=== PATIENT | female | born 1940 | race Caucasian/White ===

== ENCOUNTER 2017-10-08 04:52 | Inpatient (IN) ==
[2017-10-05 14:59] LABS: ALT/SGPT 21 U/l (0-40); Albumin 4.3 gm/dL (3.2-5.2); Albumin/Globulin Ratio 1.5 (1.0-2.3); Alkaline Phosphatase 47 U/L (39-117); Blood Urea Nitrogen 28 mg/dl (8-23)
[2017-10-05 15:00] LABS: Basophils # (Auto) 0 K/mcL (0.0-0.3); Basophils % (Auto) 0.4 % (0.0-2.0); Eosinophils # (Auto) 0.2 K/mcL (0.0-0.7); Eosinophils % (Auto) 2.1 % (0.0-7.0); Granulocytes % (Auto) 70.1 % (38.0-78.0); Lymphocytes # (Auto) 1.7 K/mcL (1.5-4.8); Lymphocytes % (Auto) 21.3 % (15.5-49.0); Mean Cell Volume 91.8 fL (80.0-100.0); Mean Corpuscular Hemoglobin 30.3 pg (26.0-34.0); Monocytes # (Auto) 0.5 K/mcL (0.1-0.9); Monocytes % (Auto) 6.1 % (1.0-12.0); Platelet Count 354 K/mcL (140-440); RBC 4.94 M/mcL (4.00-5.20); Red Cell Distribution Width 14.1 % (11.5-14.5)
[2017-10-05 15:44] LABS: Appearance,Urine CLEAR; Bilirubin,Urine NEG (NEG); Color,Urine YELLOW; Glucose,Urine (UA) NEGATIVE (NEG); Leukocyte Esterase,Urine NEG /uL (NEG); Protein,Urine NEG (NEG); Specific Gravity,Urine 1.012 (1.000-1.035); Urine Blood NEG mg/dL (<0.03); Urobilinogen,Urine NEG (NEG)
[~2017-10-08 04:52] MED LIST: IPRATROPIUM/ALBUTEROL 3 ML AMPUL.NEB NEB PRN; SCOPOLAMINE 1 PATCH PATCH TOPICAL PRN
[2017-10-08] MEDS ORDERED: ceFAZolin 1 GM VIAL IV SCH (06:00)
[2017-10-08] MEDS ORDERED: SUCCINYLCHOLINE 20 MG/ML ML IV ONE (07:30)
[2017-10-08] MEDS ORDERED: GLYCOPYRROLATE 0.2 MG/ML VIAL IV ONE (07:30)
[2017-10-08] MEDS ORDERED: KETAMINE 100 MG/ML ML IV ONE (07:30)
[2017-10-08] MEDS ORDERED: LIDOCAINE HCL/PF 100 MG/5 ML SYRINGE IV ONE (07:30)
[2017-10-08] MEDS ORDERED: ONDANSETRON 4 MG/2 ML VIAL IV ONE (07:30)
[2017-10-08] MEDS ORDERED: ePHEDrine 50 MG/ML AMPUL IV ONE (07:30)
[2017-10-08] MEDS ORDERED: LABETALOL 5 MG/ML ML IV ONE (07:30)
[2017-10-08] MEDS ORDERED: TRANEXAMIC ACID 1,000 MG/10 ML VIAL IV ONE (07:30)
[2017-10-08] MEDS ORDERED: MIDAZOLAM 2 MG/2 ML VIAL IV ONE (07:30)
[2017-10-08] MEDS ORDERED: PROPOFOL 200 MG/20 ML VIAL IV ONE (07:30)
[2017-10-08] MEDS ORDERED: fentaNYL 250 MCG/5 ML VIAL IV ONE (07:30)
[2017-10-08] MEDS ORDERED: DEXAMETHASONE 10 MG/ML VIAL IV ONE (07:30)
[2017-10-08] MEDS ORDERED: HEPARIN 20,000 UNIT/ML VIAL IR ONE (09:08)
[2017-10-08] MEDS ORDERED: THROMBIN (BOVINE) 5,000 UNIT VIAL TOPICAL ONE (09:08)
[2017-10-08] MEDS ORDERED: CALCIUM GLUCONATE 4.65 MEQ in DEXTROSE 5% IN WATER 50 ML IV ONE (09:08)
[2017-10-08] MEDS ORDERED: BUPIVACAINE 0.25% 50 ML VIAL IJ ONE (09:08)
[2017-10-08] MEDS ORDERED: GELATIN SPONGE,ABSORBABLE 1 EACH SPONGE TOPICAL ONE (09:28)
[2017-10-08] MEDS ORDERED: GELATIN SPONGE,ABSORBABLE 1 GM POWDER TOPICAL ONE (09:28)
[2017-10-08] MEDS ORDERED: GUM MASTIC/STORAX/MSAL/ALCOHOL 1 DOSE DROPERETTE TOPICAL ONE (11:49)
[2017-10-08] MEDS ORDERED: PROMETHAZINE 25 MG/ML VIAL IV PRN (11:56)
[2017-10-08] MEDS ORDERED: METHOCARBAMOL 1,000 MG/10 ML VIAL IV PRN (11:56)
[2017-10-08] MEDS ORDERED: KETOROLAC 15 MG/ML VIAL IV PRN (11:56)
[2017-10-08] MEDS ORDERED: MEPERIDINE 25 MG/ML SYRINGE IV PRN (11:56)
[2017-10-08] MEDS ORDERED: ACETAMINOPHEN 1,000 MG/100 ML BOTTLE IV ONE (11:56)
[2017-10-08] MEDS ORDERED: IPRATROPIUM/ALBUTEROL 3 ML AMPUL.NEB NEB PRN (11:56)
[2017-10-08] MEDS ORDERED: LACTATED RINGERS 1,000 ML IV SCH (12:00)
[2017-10-08] MEDS ORDERED: BENZOCAINE/MENTHOL 1 LOZENGE PO PRN (12:25)
[2017-10-08] MEDS ORDERED: ONDANSETRON ODT 4 MG TABLET SL PRN (12:25)
--- NOTE | 2017-10-08 12:25 | Brief Operative Note ---
Date of procedure: 10/08/17 Pre-op diagnosis: stenosis/ instability Post-op diagnosis: same Procedure: decomp and fusion L4-S1 Grafts/Implants: Yes (nuvasive) Anesthesia: GETA Complications: none Surgeon: Remington Girard Mental Health Tech: Crystal Collado Estimated blood loss (cc): 250 Specimens Removed/Pathology: none sent Condition: stable Disposition: PACU
[2017-10-08] MEDS: fentaNYL 100 MCG/2 ML VIAL IV PRN ×4 (13:05→13:33)
[2017-10-08] MEDS: LACTATED RINGERS 1,000 ML IV SCH ×3 (13:50→22:34)
[2017-10-08] MEDS: HYDROCODONE/APAP 7.5/325MG TABLET PO PRN (15:13)
[2017-10-08] MEDS: ceFAZolin 1 GM VIAL IV SCH ×2 (15:18→22:33)
[2017-10-08] MEDS: SENNOSIDES 1 TABLET PO SCH (22:33)
[2017-10-08] MEDS: DOCUSATE SODIUM 100 MG CAPSULE PO SCH (22:34)
[2017-10-09] MEDS: HYDROCODONE/APAP 7.5/325MG TABLET PO PRN ×6 (01:01→23:46)
[2017-10-09] MEDS ORDERED: diphenhydrAMINE 50 MG/ML VIAL ONE (05:09)
[2017-10-09] MEDS: diphenhydrAMINE 50 MG/ML VIAL IV PRN ×4 (05:12→23:46)
[2017-10-09] MEDS: LACTATED RINGERS 1,000 ML IV SCH ×2 (05:13→09:08)
--- NOTE | 2017-10-09 07:19 | Operative Note ---
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 POSTOPERATIVE DIAGNOSIS: Lumbar stenosis with instability L4-L5 and L5-S1. OPERATION PROPOSED: 1. Lumbar decompression with decompression, central canal, lateral recess, and neural foramen L4-5 and L5-S1. 2. Posterior segmental instrumentation using a NuVasive pedicle screw construct L4-5 and S1 3. Posterior/posterolateral fusion L4-5 and L5-S1. 4. Aspiration of iliac crest for osteoprogenitor cells, bilateral iliac crest. 5. Application of prosthetic device interbody space and interbody fusion L4-5 and L5-S1. OPERATION PERFORMED: Same. OPERATING SURGEON: Braxton Girard MD CDL A DRIVER: Crystal Collado PA-C INDICATIONS: This is a lady who has had disabling radicular symptoms. She has significant degenerative changes with instability L4-5 and advanced disk collapse with severe foraminal stenosis L5-S1 which explained her symptoms. We have elected to proceed with a lumbar decompression and instrumented fusion. OPERATION IN DETAIL: Informed consent was obtained. She was taken to the operating room where she was provided appropriate anesthetic and prophylactic antibiotics. She was carefully positioned. Her back was prepped sterilely. A midline incision was made. I dissected down to expose spinous process and lamina L4 through S1. I dissected out and around the facet joints to expose the transverse process and the sacral ala. A marker was placed and radiograph obtained to confirm the level of dissection. I then performed the decompression and removed the inferior one half spinous process and lamina of L4 and the superior portion of L5. I also worked to remove the inferior one half of L4, and then worked out of L5 and worked out into the opening the neural foramen L5-S1 thoroughly decompressing the lateral recess and neural foramen at L5-S1. At the end of the decompression, the central canal, the lateral recess, and the neural foramen L4 through S1, were very patent. I then placed my posterior instrumentation, this being a pedicle screw construct. I identified the appropriate starting position. I passed a gearshift awl cannulating the pedicle. Each pedicle was probed with a ball tip whip to ensure there was no pedicle wall violation. I tapped each pedicle and placed an appropriate length pedicle screw at L4-5 and S1, both on the left. The position of the hardware was verified radiographically. I then aspirated the iliac crest for osteoprogenitor cells. This was done by advancing a Jamshidi type needle into the iliac crest. I aspirated after every 10 to 15 mL of aspirate and repositioned the needle. This was done bilaterally. The aspirate was passed to the back table and was spun down for osteoprogenitor cells. I then performed my application of prosthetic device interbody space and interbody fusion. This was done by mobilizing the nerve root towards the midline. I then incised the annulus. I brought in a variety of distracting paddles and then by turning these I was able to obtain distraction across the disk space. The distraction was held with a working jerad. I then extensively curetted the disk space debriding down to subchondral bone and removing all disk material. After the disk had been thoroughly debrided, I irrigated extensively. I filled the disk space with morcellized bone graft. A cage was filled with morcellized bone graft and impacted into the site prepared for it. An identical procedure was done at L4-5 as it was done at L5-S1. The only difference is being the stylus cage, a smaller 7 mm impacted cage was used at L5-S1. I then performed the posterior and posterolateral fusion. This was done by extensively decorticating the posterolateral aspect of the spine, this being the transverse process, pars articularis, and facet joints as well as sacral ala. I packed morcellized graft into and against the decorticated posterolateral aspect of the spine after thorough irrigation. I completed the procedure by compressing across the interbody graft. I tightened and torqued the jerad into the top loading pedicle screws. I closed over a deep drain with an 0 Vicryl in interrupted fashion, 2-0 Vicryl inverted deep dermal, and running subcuticular. The procedure was tolerated well. No complications. Estimated blood loss 300 mL GDD:sridevi Job ID: [id number] Doc ID: [id number] Remington Girard MD
[2017-10-09] MEDS ORDERED: traMADol 50 MG TABLET PO PRN (07:42)
--- NOTE | 2017-10-09 07:46 | Orthopedic Progress Note ---
Subjective Patient information: Note initiated : 10/09/17 at 7:44 am Service Date, if different from initiated Date: [] Patient: Trevor Rand 77 y/o F admitted on 10/08/17 for L4-S1 Lumbar Decompression and Fusion. Chief Complaint: [] no post op problems Objective Vital signs: Vital Signs Temp Pulse Pulse Pulse Resp BP Pulse Ox 10/09/17 07:33 97.4 F 78 12 89/45 95 10/09/17 04:00 98.4 F 81 12 91/51 95 10/09/17 00:00 98.9 F 72 12 92/46 94 10/08/17 22:29 94 10/08/17 22:28 94 10/08/17 20:00 98.2 F 75 12 102/59 97 10/08/17 16:46 125/70 98 10/08/17 15:46 114/66 98 10/08/17 15:16 112/62 93 10/08/17 14:46 122/68 90 10/08/17 14:31 123/72 98 10/08/17 14:16 126/70 97 10/08/17 14:01 143/71 98 10/08/17 13:56 97 10/08/17 13:46 153/72 99 10/08/17 13:40 98.6 F 76 76 64 14 137/68 100 10/08/17 13:25 98.6 F 75 76 64 14 129/65 100 10/08/17 13:10 98.7 F 75 78 64 14 124/57 100 10/08/17 12:55 98.7 F 75 79 64 20 134/70 100 10/08/17 12:50 98.7 F 75 77 64 14 136/66 100 10/08/17 12:45 98.7 F 75 76 64 14 125/66 100 10/08/17 12:40 98.7 F 75 75 64 11 L 119/58 100 Intake and Output 10/08/17 10/09/17 10/09/17 21:59 05:59 13:59 Intake Total 1967 1220 / 1220 800 / 800 Output Total 857 / 857 1401 / 1401 Balance 1111 / 1111 -181 / -181 800 / 800 Intake: IV 628 / 628 970 / 970 Lactated Ringers 1,000 ml @ 100 568 / 568 970 / 970 mls/hr IV .Q10H MANE Rx#: [id number] Oral 1340 / 1340 250 / 250 800 / 800 Output: Drainage 107 / 107 76 / 76 Right Back JULES Drain 107 / 107 76 / 76 Urine Catheter Amount 750 / 750 1325 / 1325 Other: Weight 149 lb Intake & Output: Intake & Output 10/08/17 10/09/17 10/09/17 21:59 05:59 13:59 Intake Total 1967 / 1967 1220 / 1220 800 / 800 Output Total 857 / 857 1401 / 1401 Balance 1111 / 1111 -181 / -181 800 / 800 Weight 149 lb Intake: IV 628 / 628 970 / 970 Lactated Ringers 1,000 ml @ 100 568 / 568 970 / 970 mls/hr IV .Q10H MANE Rx#: [id number] Oral 1340 / 1340 250 / 250 800 / 800 Output: Drainage 107 / 107 76 / 76 Right Back JULES Drain 107 / 107 76 / 76 Urine Catheter Amount 750 / 750 1325 / 1325 Dressing: Yes clean, Yes dry Neurological exam IM: Yes neurovascular intact - Labs CBC & BMP: 10/05/17 11:51 10/05/17 11:51 Labs: Orthopedic Labs 10/05/17 11:51 PT 12.7 INR 1.0 10/09/17 10/05/17 05:00 11:51 Hgb Pending 14.9 Hct Pending 45.3 Assessment and Plan (1) Stenosis, spinal, lumbar Status: Acute Qualifiers: Neurogenic claudication status: with neurogenic claudication Qualified Code (s): M48.062 - Spinal stenosis, lumbar region with neurogenic claudication (2) Stenosis, spinal, lumbar moblilize with pt Status: Acute
[2017-10-09] MEDS ORDERED: KETOROLAC 15 MG/ML VIAL IV ONE (07:51)
[2017-10-09] MEDS: EZETIMIBE 10 MG TABLET PO SCH (09:06)
[2017-10-09] MEDS: METHOCARBAMOL 750 MG TABLET PO PRN ×2 (09:06→18:27)
[2017-10-09] MEDS: predniSONE 1 MG TABLET PO SCH (09:06)
[2017-10-09] MEDS: CETIRIZINE 10 MG TABLET PO SCH (09:06)
[2017-10-09] MEDS: DOCUSATE SODIUM 100 MG CAPSULE PO SCH ×2 (09:07→21:57)
[2017-10-09] MEDS: TRIAMTERENE/HYDROCHLOROTHIAZID 1 TABLET PO SCH (09:07)
[2017-10-09 13:23] LABS: Blood Urea Nitrogen 16 mg/dl (8-23)
[2017-10-09] MEDS: OMEPRAZOLE 20 MG CAPSULE PO SCH (17:23)
[2017-10-09] MEDS ORDERED: DOXYLAMINE SUCCINATE 25 MG PO SCH (21:00)
[2017-10-09] MEDS: SENNOSIDES 1 TABLET PO SCH (21:57)
[2017-10-10] MEDS: HYDROCODONE/APAP 7.5/325MG TABLET PO PRN ×2 (05:04→10:01)
[2017-10-10] MEDS: diphenhydrAMINE 50 MG/ML VIAL IV PRN (05:05)
[2017-10-10] MEDS: METHOCARBAMOL 750 MG TABLET PO PRN (06:17)
--- NOTE | 2017-10-10 06:41 | Discharge Summary ---
Providers - Providers Patient information: Note initiated : 10/10/17 at 6:37 am Service Date, if different from initiated Date: [] Patient: Trevor Son 77 y/o F admitted on 10/08/17 for L4-S1 Lumbar Decompression and Fusion. Chief Complaint: [S/P L4-S1 decompression and fusion] Patient is doing well and anxious to return home. No particular complaints other than low back pain as expected. Denies any new lower extremity paresthesias or weakness. Date of admission: 10/08/17 Discharge date: 10/10/17 Attending physician: Remington Girard Hospitalization Hospital course: Postoperatively, the patient was returned to the parr and provided routine pain management and maintained on prophylactic abx. She ambulated daily with PT. At the time of discharge she is doing well and tolerating all medications well. She is discharged to follow-up with me in 2 weeks. She will call with any questions or concerns whatsoever. Discharge diagnosis: Spinal stenosis Reason for admission: The patient was admitted for operative treatment of lumbar stenosis. Procedures: L4-S1 decompression and fusion Complications: NONE Exam - Exam Incision healing: Yes Incision draining: No Incision red: No Incision swollen: No Incision inflamed: No Clean and dry: Yes Weight bearing status: as tolerated Ortho Discharge - Spine - Patient Instructions Discharge Diet: Regular Diet Activity: weight bearing as tolerated Spine Protocol: Limit bending and stooping. No heavy lifting. Wear brace/collar at all times except when showering and sleeping. Additional Dressing Instructions: May Shower 48 hours post-operative and replace with dry dressing after shower. - Follow Up Plan Follow Up Appointments: Crystal Collado PA-C [Physician Special Equipment Technician] - 10/23/17 11:00 am Disposition: Home, Self-Care Prognosis: Good Rehab Potential: Good I certify that the patient requires SNF services: No Overall status at discharge: patient is progressing back to baseline - Orders For Discharge Prescriptions: Hydrocodone/APAP 7.5/325Mg [Tujung[place] 7.5-325Mg] 1 - 2 tab PO Q4HP PRN #60 tablet PRN Reason: Pain Methocarbamol [Robaxin] 750 mg PO Q8HP PRN #30 tablet PRN Reason: Muscle Spasm Pending Studies Resuscitation Status Full Code Diet Regular Diet Start Sun 4 Dinner Hydrocodone Bitart/Acetaminophen (T[place]ung[place] 7.5/325mg) 0 tab PO Q4HP PRN PRN Reason: PAIN LEVEL 3-6 Last Admin: 10/10/17 05:04 Dose: 2 tab Admin: 10/09/17 23:46 Dose: 2 tab Admin: 10/09/17 18:27 Dose: 2 tab Admin: 10/09/17 13:14 Dose: 2 tab Admin: 10/09/17 09:06 Dose: 2 tab Admin: 10/09/17 05:12 Dose: 2 tab Admin: 10/09/17 01:01 Dose: 2 tab Admin: 10/08/17 15:13 Dose: 2 tab Cetirizine HCl (Zyrtec) 10 mg PO DAILY [facility] Last Admin: 10/09/17 09:06 Dose: 10 mg Diphenhydramine HCl (Benadryl) 25 - 50 mg IV Q4HP PRN PRN Reason: Allergic Symptoms Last Admin: 10/10/17 05:05 Dose: 50 mg Admin: 10/09/17 23:46 Dose: 50 mg Admin: 10/09/17 18:27 Dose: 50 mg Admin: 10/09/17 05:49 Dose: 25 mg Admin: 10/09/17 05:12 Dose: 25 mg Docusate Sodium (Colace) 100 mg PO BID [facility] Last Admin: 10/09/17 21:57 Dose: 100 mg Admin: 10/09/17 09:07 Dose: 100 mg Admin: 10/08/17 22:34 Dose: 100 mg Ezetimibe (Zetia) 10 mg PO DAILY [facility] Last Admin: 10/09/17 09:06 Dose: 10 mg Methocarbamol (Robaxin) 750 mg PO Q6HP PRN PRN Reason: Muscle Spasm Last Admin: 10/10/17 06:17 Dose: 750 mg Admin: 10/09/17 18:27 Dose: 750 mg Admin: 10/09/17 09:06 Dose: 750 mg Morphine Sulfate (Morphine) 2 - 4 mg IV Q2HP PRN PRN Reason: Pain Last Admin: 10/09/17 10:38 Dose: 4 mg Admin: 10/09/17 01:02 Dose: 2 mg Admin: 10/08/17 22:33 Dose: 2 mg Admin: 10/08/17 19:38 Dose: 2 mg Admin: 10/08/17 16:27 Dose: 4 mg Omeprazole (Prilosec) 20 mg PO ACB [facility] Last Admin: 10/09/17 17:23 Dose: 20 mg Doxylamine Succinate [Sleep Aid] 25 Mg Tab 1 dose PO [facility] Last Admin: 10/09/17 21:57 Dose: Not Given Prednisone (Prednisone) 6 mg PO [facility] Last Admin: 10/09/17 09:06 Dose: 6 mg Senna (Senokot) 2 tab PO [facility] Last Admin: 10/09/17 21:57 Dose: 2 tab Admin: 10/08/17 22:33 Dose: 2 tab Triamterene/HCTZ (Maxzide 25) 1 tab PO DAILY [facility] Last Admin: 10/09/17 09:07 Dose: 1 tab Shift Summary 10/10/17 04:52 Shift Summary by Isabel [email or web address]. Dressing to lower back CDI. JULES drain to lower back with orders to charge for 20min Q2H and empty Q4H. Pain controlled with 2 Tujunga x2. Benadryl given each time Tujunga has been given to control her itching. Knee high CHRISTIE hose on. Up ad adela to BR. Wears back brace during ambulation. Voiding well. IV to RFA SL. Calls appropriately. Initialized on 10/10/17 04:52 - END OF NOTE
[2017-10-10] MEDS: OMEPRAZOLE 20 MG CAPSULE PO SCH (07:28)
[2017-10-10] MEDS ORDERED: ESTRADIOL 1 MG TABLET PO SCH (09:00)
[2017-10-10] MEDS: CETIRIZINE 10 MG TABLET PO SCH (09:18)
[2017-10-10] MEDS: DOCUSATE SODIUM 100 MG CAPSULE PO SCH (09:18)
[2017-10-10] MEDS: EZETIMIBE 10 MG TABLET PO SCH (09:18)
[2017-10-10] MEDS: predniSONE 1 MG TABLET PO SCH (09:18)
[2017-10-10] MEDS: TRIAMTERENE/HYDROCHLOROTHIAZID 1 TABLET PO SCH (09:48)
--- NOTE | 2017-10-11 19:10 | XRay Report ---
CLINICAL INFORMATION: 47 L5-S1 fusion COMPARISON: None. FINDINGS: Multiple digital images submitted from the OR show L4-5/L5-S1 anterior/posterior fusion provided by interbody graft graft pedicle screws short interbody struts in various stages of the procedure. Final film shows near-anatomic alignment and optimal hardware position IMPRESSION: L4-5/L5-S1 fusion. Near-anatomic alignment. Interpreted and Authenticated by: David Schwartz 10/11/17
== END 2017-10-10 10:30 | disposition home or self-care (01) | DRG 455 ==
LOC: ICU 04:52 → MEDSUR 08:13
PROVIDERS: ADMIT Orthopaedic Surgery Orthopaedic Surgery of the Spine; ATTEND Orthopaedic Surgery Orthopaedic Surgery of the Spine